=== PATIENT | female | born 1965 | race Caucasian/White ===

== ENCOUNTER 2016-12-19 16:37 | Emergency (ER) | payer BC ==
[2016-12-19 17:14] VITALS: BP 109/76
--- NOTE | 2016-12-19 17:14 | UC ---
Skin Complaint HPI - HPI Summary HPI Summary: for 3 days has had a worsening red area on left upper arm started itchy and is now warm and painful - History of Current Complaint Hx Obtained From: Patient ?: No Onset/Duration: Sudden Onset, Lasting Days - 3, Worse Since - today Skin Exposure Onset/Duration: Days Ago - 3 Timing: Constant Onset Severity: Mild Current Severity: Moderate Pain Intensity: 5 Pain Scale Used: 0-10 Numeric Location: Discrete - left upper arm Character: Redness Aggravating: Nothing Alleviating: Nothing Associated Signs & Symptoms: Positive: Negative Related History: Insect Bite/Sting <Cheryle Ibarra - Last Filed: 12/19/16 18:51> <Lata Candelario - Last Filed: 12/19/16 18:56> - History of Current Complaint Chief Complaint: [facility] Time Seen by Provider: 12/19/16 17:01 Stated Complaint: RASH - Allergy/Home Medications Allergies/Adverse Reactions: Allergies Allergy/AdvReac Type Severity Reaction Status Date / Time No Known Allergies Allergy Verified 07/11/13 15:41 Review of Systems Constitutional: Negative Skin: Rash - left upper arm red raised- Eyes: Negative ENT: Negative Respiratory: Negative Cardiovascular: Negative Gastrointestinal: Negative Genitourinary: Negative Motor: Negative Neurovascular: Negative Musculoskeletal: Negative Neurological: Negative Psychological: Negative All Other Systems Reviewed And Are Negative: Yes <Cheryle Ibrara - Last Filed: 12/19/16 18:51> PMH/Surg Hx/FS Hx/Imm Hx Previously Healthy: Yes Neurological History Of: Reports: Migraine Cancer History Of: Denies: Breast Cancer - Surgical History Surgical History: Yes Surgery Procedure, Year, and Place: Tonsils. Hysterectomy, 2007, [facility] [place]. Ruptured L5 S1 ? Disc Repair, 2009, [facility] [place] - Family History Known Family History: Positive: None Family History: no cardio vascular issues in family lineage - Social History Occupation: Employed Full-time Lives: With Family Alcohol Use: Rare Substance Use Type: None Smoking Status (MU): Never Smoked Tobacco <Cheryle Ibarra - Last Filed: 12/19/16 18:51> Physical Exam Triage Information Reviewed: Yes Appearance: Well-Appearing, No Pain Distress, Well-Nourished Vital Signs: Initial Vital Signs Temp 98.2 F 12/19/16 17:08 Pulse 60 05/20/17 17:08 Resp 18 12/19/16 17:08 BP 109/76 12/19/16 17:08 Pulse Ox 100 12/19/16 17:08 Vital Signs Reviewed: Yes Eye Exam: Normal Eyes: Positive: Conjunctiva Clear ENT Exam: Normal ENT: Positive: Normal ENT inspection, Hearing grossly normal. Negative: Nasal congestion, Nasal drainage, Tonsillar swelling, Tonsillar exudate, Trismus, Muffled/hoarse voice Dental Exam: Normal Neck exam: Normal Neck: Positive: Supple, Nontender, No Lymphadenopathy Respiratory Exam: Normal Respiratory: Positive: Chest non-tender, No respiratory distress, No accessory muscle use Cardiovascular Exam: Normal Cardiovascular: Positive: RRR, No Murmur, Pulses Normal, Brisk Capillary Refill Musculoskeletal Exam: Normal Musculoskeletal: Positive: Strength Intact, ROM Intact, No Edema Neurological Exam: Normal Neurological: Positive: Alert, Muscle Tone Normal Psychological Exam: Normal Skin Exam: Other Skin: Positive: rashes - 5x4 cm rash around a small open area and a second bug bite less than dime size just proximal <Cheryle Ibarra - Last Filed: 12/19/16 18:51> Vital Signs: Initial Vital Signs Temp 98.2 F 12/19/16 17:08 Pulse 60 12/19/16 17:08 Resp 18 12/19/16 17:08 BP 109/76 12/19/16 17:08 Pulse Ox 100 12/19/16 17:08 <Lata Candelario - Last Filed: 12/19/16 18:56> Course/Dx - Course Course Of Treatment: warm compress, antibiodic follow with PCP re-check prn - Differential Diagnoses - Skin Complaint Differential Diagnoses: Cellulitis, Contact Dermatitis, Impetigo, Tick Born Illness - Diagnoses Provider Diagnoses: Cellulitis left upper arm <Cheryle Ibarra - Last Filed: 12/19/16 18:51> Discharge <Cheryle Ibarra - Last Filed: 12/19/16 18:51> <Lata Candelario - Last Filed: 12/19/16 18:56> - Discharge Plan Condition: Stable Disposition: HOME Prescriptions: Fluconazole [Diflucan 150 MG (NF)] 150 mg PO ONCE #2 tab Sulfamethox/Trimethoprim DS* [Bactrim DS 800/160 TAB*] 1 tab PO BID #14 tab Patient Education Materials: Sulfamethoxazole/Trimethoprim (By mouth), Cellulitis (ED), Insect Bite or Sting (ED) Referrals: Kiesha Santos MD [Medical Doctor] - If Needed Attestations User Type: Provider - I was available for consult. This patient was seen by the [facility]. The patient was not presented to, seen by, or examined by me. <Lata Candelario - Last Filed: 12/19/16 18:56>
== END 2016-12-19 17:28 | disposition home or self-care (01) ==
LOC: UCEAST 16:37
DX: S40.862A Insect bite (nonvenomous) of left upper arm, initial encounter (principal); L03.114 Cellulitis of left upper limb; B96.89 Other specified bacterial agents as the cause of diseases classified elsewhere
CPT/HCPCS: 99212; G0463